=== PATIENT | male | born 1980 | race Caucasian/White ===

== ENCOUNTER 2020-10-29 14:18 | Inpatient (IN) | payer OTHER ==
[2020-10-29] MEDS ORDERED: DEXAMETHASONE 10 MG/ML VIAL IVP STA (14:35)
[2020-10-29] MEDS ORDERED: SODIUM CHLORIDE 0.9% 1,000 ML IV STA (14:47)
--- NOTE | 2020-10-29 14:50 | ED Physician Documentation ---
PD HPI URI - Stated complaint Stated Complaint: C+ SOA - Chief complaint Chief Complaint: Resp - History obtained from History obtained from: Patient - History of Present Illness Timing - onset: How many days ago (5) Timing duration: Days (5) Timing details: Abrupt onset, Still present Associated symptoms: Fever, Chills, Sweats, Nasal congestion, Dry cough, Dyspnea, NVD Contributing factors: Sick contact (works on the [employer]) Improves by: O2 Worsened by: Activity Similar symptoms before: Has not had sx before Recently seen: Other (has COVID test done 4 days ago +) - Additional information Additional information: Previously well 40-year-old male with a high BMI has developed fever muscle aches fatigue cough shortness of breath and he had a Covid test done 4 days ago which is positive. He has been at home quarantined and he has been vomiting. He has had increased shortness of breath and exertional dyspnea. Review of Systems Constitutional: reports: Fever, Chills, Fatigue, Sweats Eyes: denies: Decreased vision Ears: denies: Ear pain Nose: reports: Congestion. denies: Rhinorrhea / runny nose Throat: denies: Sore throat Cardiac: denies: Chest pain / pressure, Palpitations, Pedal edema, Calf pain Respiratory: reports: Dyspnea, Cough GI: reports: Nausea, Vomiting : denies: Dysuria, Frequency Skin: denies: Rash Musculoskeletal: denies: Neck pain, Back pain, Extremity pain Neurologic: denies: Focal weakness, Numbness, Difficulty speaking, Confused, Altered mental status PD PAST MEDICAL HISTORY - Allergies Allergies/Adverse Reactions: Allergies Allergy/AdvReac Type Severity Reaction Status Date / Time No Known Drug Allergies Allergy Verified 10/29/20 14:22 - Living Situation Living Situation: reports: With spouse/s.o. Living Arrangement: reports: At home - Family History Family history: reports: CAD (in 40's for father), Other (father of cryptogenic pneumonia) PD ED PE NORMAL - Vitals Vital signs reviewed: Yes - General General: Alert and oriented X 3, Well developed/nourished, Other ([place] appearing 40-year-old obese male in a recumbent position does not appear to be struggling for air) - HEENT HEENT: Atraumatic, PERRL, EOMI, Pharynx benign, Other (tongue is black) - Neck Neck: Supple, no meningeal sign, No bony TTP - Cardiac Cardiac: No murmur, Other (tachy ) - Respiratory Respiratory: No respiratory distress, Other (diminished breath sounds. ) - Abdomen Abdomen: Soft, Non tender, Other (obese) - Back Back: No CVA TTP, No spinal TTP - Derm Derm: Normal color, Warm and dry, No rash - Extremities Extremities: No deformity, No edema - Neuro Neuro: Alert and oriented X 3, pediatric nephrologist 2-12 intact, No motor deficit, No sensory deficit, Normal speech Eye Opening: Spontaneous Motor: Obeys Commands Verbal: Oriented GCS Score: 15 - Psych Psych: Normal mood, Normal affect Results - Vitals Vitals: Vital Signs - 24 hr 10/29/20 10/29/20 10/29/20 14:24 14:33 15:00 Temperature 38.4 C H Heart Rate 119 H 118 H 114 H Respiratory 16 21 14 Rate Blood Pressure 155/103 H 131/93 H 138/85 H O2 Saturation 85 L 90 L 92 Oxygen O2 Source Simple Mask - Labs Labs: Laboratory Tests 10/29/20 10/29/20 14:59 14:59 WBC 4.3 L RBC 4.77 Hgb 14.6 Hct 41.8 L MCV 87.6 MCH 30.6 MCHC 34.9 RDW 12.2 Plt Count 151 MPV 9.8 Neut # (Auto) 3.8 Lymph # (Auto) 0.3 L [place] # (Auto) 0.2 Eos # (Auto) 0.0 Baso # (Auto) 0.0 Absolute Nucleated RBC 0.00 Nucleated RBC % 0.0 Lactic Acid 1.0 - Rads (name of study) chest Radiology: Prelim report reviewed (Impression: Diffuse interstitial and alveolar opacities with obscuration of the pulmonary vascular likely represents pulmonary edema. Focal consolidation at the left lung base may represent more focal region of pulmonary edema. Underlying infection is not completely excluded. ), Final report received (Likely mild cardiomegaly questionable small left-sided pleural effusion.), EMP read indepedently (COVID pneumonia ) PD MEDICAL DECISION MAKING - ED course Complexity details: reviewed results, re-evaluated patient, considered differential, d/w patient ED course: 38-year-old male previously well with a history of obesity has developed COVID- 19 he is 5 days into his illness and is developed hypoxia. He has been vomiting for 4 days and feels dehydrated. He is administered intravenous saline 6 mg of dexamethasone and preparations are made for admission. Departure - Departure Disposition: 66 [facility] DC/[facility] Clinical Impression: Acute COVID-19, Dehydration
[2020-10-29] MEDS ORDERED: ACETAMINOPHEN 325 MG TABLET PO STA (14:52)
[2020-10-29] MEDS ORDERED: ONDANSETRON 4 MG/2 ML VIAL IVP STA (15:05)
[2020-10-29 15:08] LABS: HGB - HEMOGLOBIN 14.6 g/dL (14.0-18.0); LYMPHOCYTES # (AUTO) 0.3 10^3/uL (1.5-3.5); LYMPHOCYTES % (AUTO) 7.6 %; MEAN CORPUSCULAR HEMOGLOBIN 30.6 pg (27.0-31.0); MEAN CORPUSCULAR HGB CONC 34.9 g/dL (32.0-36.0); MEAN CORPUSCULAR VOLUME 87.6 fL (80.0-94.0); MEAN PLATELET VOLUME 9.8 fL (7.4-11.4); MONOCYTES # (AUTO) 0.2 10^3/uL (0.0-1.0); MONOCYTES % (AUTO) 4.6 %; NEUTROPHILS # (AUTO) 3.8 10^3/uL (1.5-6.6); NEUTROPHILS % (AUTO) 87.6 %; PLT - PLATELET COUNT 151 10^3/uL (130-450); RED BLOOD COUNT 4.77 10^6/uL (4.70-6.10); RED CELL DISTRIBUTION WIDTH 12.2 % (12.0-15.0); WHITE BLOOD COUNT 4.3 x10^3/uL (4.8-10.8)
--- NOTE | 2020-10-29 15:25 | XRAY Report ---
PROCEDURE: Chest 1 View X-Ray INDICATIONS: chest pain TECHNIQUE: One view of the chest was acquired. COMPARISON: None FINDINGS: Surgical changes and devices: None. Lungs and pleura: There is diffuse interstitial and alveolar opacities. Obscuration of the pulmonary vasculature. More focal opacity is noted at the left lung base. Mediastinum: Mediastinal contours appear normal. Heart size appears mildly enlarged. Questionable s mall left-sided pleural effusion. Bones and chest wall: No suspicious bony lesions. Overlying soft tissues appear unremarkable. IMPRESSION: Diffuse interstitial and alveolar opacities with obscuration of the pulmonary vasculature likely repr esents pulmonary edema. Focal consolidation at the left lung base may represent more focal region of pulmonary edema. Underlying infection is not completely excluded. Likely mild cardiomegaly. Questionable small left-sided pleural effusion. Reviewed by: Aguila Schaefer DO on 10/29/2020 2:24 PM [facility] Approved by: Aguila Schaefer DO on 10/29/2020 2:24 PM [facility] Station ID: [id number]
[2020-10-29 15:32] LABS: ALBUMIN 3.4 g/dL (3.2-5.5); BILIRUBIN,TOTAL 0.9 mg/dL (0.2-1.0); TOTAL PROTEIN 6.7 g/dL (6.7-8.2)
[2020-10-29 15:33] LABS: GLUCOSE, URINE (UA) NEGATIVE (NEGATIVE); KETONES,URINE (UA) 40 mg/dL (NEGATIVE); LEUKOCYTE ESTERASE, URINE NEGATIVE (NEGATIVE); NITRITE,URINE NEGATIVE (NEGATIVE); OCCULT BLOOD,URINE SMALL (NEGATIVE); PH,URINE 6.5 PH (5.0-7.5); PROTEIN,URINE 100 mg/dL (NEGATIVE); UROBILINOGEN,URINE 1 (NORMAL) E.U./dL (NORMAL)
[2020-10-29 15:41] LABS: BILIRUBIN,URINE NEGATIVE (NEGATIVE); CLARITY,URINE HAZY (CLEAR); ICTOTEST,URINE NEGATIVE
[2020-10-29] MEDS ORDERED: oxyCODONE 5 MG TABLET PO PRN (15:41)
[2020-10-29] MEDS ORDERED: ONDANSETRON ODT 4 MG TABLET TL PRN (15:41)
[2020-10-29] MEDS ORDERED: NON FORMULARY MED (Remdesivir 200 MG) IV SCH (15:45)
[2020-10-29 15:53] LABS: BACTERIA,URINE Rare /HPF (None Seen); RBC,URINE 0-5 /HPF (0-5); SQUAMOUS EPITHELIAL CELL,UR FEW Squamous (<= Few)
--- NOTE | 2020-10-29 16:12 | HISTORY & PHYSICAL EXAMINATION ---
Chief Complaint - Chief Complaint Chief Complaint: fever, chills, nausea, vomitting History of Present Illness - Admitted From Admitted From:: Home - History Obtained From Records Reviewed: [facility] History obtained from: patient and Dr. Zaragoza Exam Limitations: none - History of Present Illness HPI Comment/Other: Other than being morbidly obese, he considers himself a healthy diet. 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 As far as he knows no one else is sick in his house. 4 days ago he developed high fever, diffuse muscle aches, a dry cough, and profound fatigue. Shortness of breath started slowly and has progressed to panting today. He had a Covid test done 4 days ago and the results shown to be positive. He started vomiting today, cannot keep anything down. So between the shortness of breath and the vomiting he came to the emergency room. In the emergency room temperature was 38.4, heart rate 119, blood pressure 155/103, respirations 16 and is 85% on room air. He weight is 149.68 kg and he is 6 foot [address] Zaragoza describes him as "ferrer appearing 40-year-old obese male" who is in no respiratory distress. He has diminished breath sounds diffusely. Otherwise normal exam. Chest x-ray has diffuse interstitial and alveolar opacities with obscuration of the pulmonary vascular likely representing pulmonary edema. Possible focal consolidation left lung base. Urinalysis has proteinuria, ketonuria, small amount of occult blood. Sodium is 130, BUN 16, creatinine 1.0. Lactic acid 1.0. Calcium low 8.0. AST is 56. White cell count is low at 4.3 with lymphopenia on differential. Hemoglobin 14.6. Blood cultures have been done. On the basis of abnormal chest x-ray, positive Covid testing, he is now admitted for Covid pneumonia and hypoxia History - Past Medical History Cardiovascular: reports: Hypertension Respiratory: reports: None Neuro: reports: None Endocrine/Autoimmune: reports: None GI: reports: None : reports: None HEENT: reports: None Psych: reports: None Musculoskeletal: reports: None Derm: reports: None MRSA Hx?: No - Family & Social History Family History Comment/Other: Dad in his 40s of cryptic genic pneumonia. Mom is 64 and healthy without any history of hypertension, diabetes, cancer, heart attack. 1 sister is completely healthy. 3 children are completely healthy without any medical problems Living arrangement: At home Living Situation: With spouse/s.o. [place]. 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 He started smoking at the age of 14 and probably smokes 1 cigarette a month. Mainly smokes when he is having a drink with the guys. Alcohol is 1-2 drinks a week. No history of cannabis, cocaine, heroin, LSD, or methamphetamines. He is , lives with his 3 kids and his in their own home. - Substance History Use: Uses substance without health or social issues: NONE Abuse: Recurrent use of substance despite neg consequences: NONE Dependence: Experiences withdrawal or developed tolerances: NONE - POLST Patient has POLST: No POLST Status: Full Code Meds/Allgy - Allergies Allergies/Adverse Reactions: Allergies Allergy/AdvReac Type Severity Reaction Status Date / Time No Known Drug Allergies Allergy Verified 10/29/20 14:22 Review of Systems - All Other Systems All Other Systems: reports: Other (13 point review of systems done. Any pertinent positives are in history of present illness. All others are negative.) Prior Level of Functionality: Completely independent with activities of daily living. Drives a car, able to do housework, works full-time. Does not use any durable medical equipment. Exam - Vital Signs Reviewed Vital Signs: Yes Vital Signs: Vital Signs x48h Temp Pulse Resp BP Pulse Ox 10/29/20 15:30 112 H 22 153/98 H 94 10/29/20 15:00 114 H 14 138/85 H 92 10/29/20 14:33 118 H 21 131/93 H 90 L 10/29/20 14:24 38.4 C H 119 H 16 155/103 H 85 L - Physical Exam General Appearance: positive: Alert, Mild distress, Other (Morbidly obese young white male who looks his stated age, appears completely exhausted with the effort of speaking to me, diffusely diaphoretic) Eyes Bilateral: positive: PERRL, EOMI ENT: positive: No signs of dehydration Neck: positive: No JVD. negative: Stiff neck Respiratory: positive: Rales, Other (Respiratory rate is in the low 20s, slight panting with speaking to me.). negative: Wheezes, Rhonchi Cardiovascular: positive: Regular rate & rhythm, Tachycardia. negative: Systolic murmur, Gallop/S4, Friction rub Peripheral Pulses: positive: 1+ Abdomen: positive: Non-tender, Nml bowel sounds, No distention, Other (Hugely obese, unable to assess for organomegaly) Skin: positive: Warm, Dry, Diaphoresis, Pallor Extremities: positive: Non-tender, Full ROM, No pedal edema Neurologic/Psychiatric: positive: Oriented x3, CN's nml (2-12), Motor nml, Sensation nml Conclusion/Plan - Problem List (1) Pneumonia due to COVID-19 virus Conclusion/Plan: Covid +4 days ago. Repeat PCR not done in the emergency room. Chest x-ray confirms diffuse infiltrate with some consolidation left lung. Plan: Remdesivir 200 mg today and 100 mg a day for 4 days after that Already given Decadron in the ER and that will be continued 6 mg daily D-dimer in the morning Lovenox 40 mg subcu daily Because of possible consolidation, will add Rocephin and azithromycin (2) Acute respiratory failure with hypoxia Conclusion/Plan: Nasal cannula oxygen at this time. We will progress to facemasks and BiPAP if needed. He does wish to be a full code. (3) Dehydration Conclusion/Plan: With his fever, diffuse diaphoresis, decreased p.o. intake with nausea and vomiting, I would suspect that dehydration is problematic although not recognized by his BUN and creatinine. Plan: Lactated Ringer's 100 cc an hour - Lab Results Lab results reviewed: Yes Fish Bones: 10/29/20 14:59 10/29/20 14:59 - Diagnostic Imaging Results Diagnostic Imaging Results: positive: Final report reviewed Diagnostic Imaging Results Comments: As noted in history of present illness Core Measures - Anticipated LOS I expect patient to be DC'd or transferred within 96 hours.: Yes - DVT/VTE - Prophylaxis VTE/DVT Device ordered at admit?: Yes
[2020-10-29] MEDS: SODIUM CHLORIDE FLUSH 0.9% 10 ML SYRINGE IVP SCH (16:51)
[2020-10-29] MEDS: LACTATED RINGERS 1,000 ML IV SCH (16:52)
[2020-10-29] MEDS ORDERED: REMDESIVIR 100MG VIAL 200 MG in SODIUM CHLORIDE 0.9% 210 ML IV ONE (17:00)
[2020-10-29] MEDS: cefTRIAXone 1 GM in SODIUM CHLORIDE 0.9% MINIBAG 100 ML IV SCH (18:00)
[2020-10-29] MEDS: AZITHROMYCIN INJ 500 MG in SODIUM CHLORIDE 0.9% 250 ML IV SCH (18:38)
[2020-10-29] MEDS: ACETAMINOPHEN 325 MG TABLET PO PRN (21:44)
[2020-10-29] MEDS: ONDANSETRON 4 MG/2 ML VIAL IVP PRN (21:44)
[2020-10-30] MEDS: SODIUM CHLORIDE FLUSH 0.9% 10 ML SYRINGE IVP SCH ×3 (00:31→17:02)
[2020-10-30] MEDS: LACTATED RINGERS 1,000 ML IV SCH ×2 (05:32→15:48)
[2020-10-30 06:15] LABS: HGB - HEMOGLOBIN 13.6 g/dL (14.0-18.0); LYMPHOCYTES # (AUTO) 0.4 10^3/uL (1.5-3.5); LYMPHOCYTES % (AUTO) 11.8 %; MEAN CORPUSCULAR HEMOGLOBIN 30.4 pg (27.0-31.0); MEAN CORPUSCULAR HGB CONC 34.3 g/dL (32.0-36.0); MEAN CORPUSCULAR VOLUME 88.6 fL (80.0-94.0); MEAN PLATELET VOLUME 9.3 fL (7.4-11.4); MONOCYTES # (AUTO) 0.2 10^3/uL (0.0-1.0); MONOCYTES % (AUTO) 7.4 %; NEUTROPHILS # (AUTO) 2.4 10^3/uL (1.5-6.6); NEUTROPHILS % (AUTO) 80.1 %; PLT - PLATELET COUNT 152 10^3/uL (130-450); RED BLOOD COUNT 4.48 10^6/uL (4.70-6.10); RED CELL DISTRIBUTION WIDTH 12.4 % (12.0-15.0)
[2020-10-30 06:22] LABS: CALCIUM 7.8 mg/dL (8.5-10.3); CREATININE 0.9 mg/dL (0.6-1.2)
[2020-10-30] MEDS: ENOXAPARIN 40 MG/0.4 ML SYRINGE SUBQ SCH (08:19)
[2020-10-30] MEDS: ONDANSETRON 4 MG/2 ML VIAL IVP PRN ×2 (08:19→21:08)
[2020-10-30] MEDS: DEXAMETHASONE 4 MG/ML VIAL IVP SCH (08:19)
--- NOTE | 2020-10-30 11:37 | PROVIDER PROGRESS NOTE ---
Subjective - Prog Note Date Prog Note Date: 10/30/20 Prog Note Time: 11:38 - Subjective Subjective: When he was admitted yesterday, there was no medication list on his intake. He did say he had high blood pressure was but vague on the pills. Today pharmacy says that he may be taking amlodipine, Lexapro, lisinopril. Naproxen extended release. Patient still has cough, fatigue, shortness of breath. Less nausea. No vomiting. Current Medications - Current Medications Current Medications: Active Medications Acetaminophen (Acetaminophen 325 Mg Tablet) 650 mg PO Q4HR PRN PRN Reason: Pain 1 to 4 Last Admin: 10/29/20 21:44 Dose: 650 mg Documented by: Dexamethasone (Dexamethasone 4 Mg/Ml Vial) 6 mg IVP DAILY ON LICENSE OF [facility] Last Admin: 10/30/20 08:19 Dose: 6 mg Documented by: Enoxaparin Sodium (Enoxaparin 40 Mg/0.4 Ml Syringe) 40 mg SUBQ DAILY ON LICENSE OF [facility] Last Admin: 10/30/20 08:19 Dose: 40 mg Documented by: Lactated Ringer's (Lr) 1,000 mls @ 100 mls/hr IV .Q10H ON LICENSE OF [facility] Last Admin: 10/30/20 05:32 Dose: 100 mls/hr Documented by: Remdesivir 100 mg/ Sodium (Chloride) 100 mls @ 200 mls/hr IV Q24H ON LICENSE OF [facility] Stop: 11/02/20 17:29 Ceftriaxone Sodium 1 gm/ (Sodium Chloride) 100 mls @ 200 mls/hr IV Q24H ON LICENSE OF [facility] Last Infusion: 10/29/20 18:37 Dose: Infused Documented by: Azithromycin 500 mg/ Sodium (Chloride) 250 mls @ 250 mls/hr IV Q24H ON LICENSE OF [facility] Stop: 11/02/20 19:59 Last Infusion: 10/29/20 19:39 Dose: Infused Documented by: Ondansetron HCl (Ondansetron Odt 4 Mg Tablet) 4 mg TL Q6HR PRN PRN Reason: Nausea / Vomiting Ondansetron HCl (Ondansetron 4 Mg/2 Ml Vial) 4 mg IVP Q6HR PRN PRN Reason: Nausea / Vomiting Last Admin: 10/30/20 08:19 Dose: 4 mg Documented by: Oxycodone HCl (Oxycodone 5 Mg Tablet) 5 mg PO Q4HR PRN PRN Reason: Pain 5 to 7 Last Admin: 10/30/20 00:39 Dose: 5 mg Documented by: Sodium Chloride (Sodium Chloride Flush 0.9% 10 Ml Syringe) 10 ml IVP PRN PRN PRN Reason: NEEDED PER PROVIDER ORDERS Sodium Chloride (Sodium Chloride Flush 0.9% 10 Ml Syringe) 10 ml IVP 0100,0900,1700 NELL Last Admin: 10/30/20 10:14 Dose: Not Given Documented by: Escitalopram Oxalate [Lexapro] 20 mg PO DAILY 10/30/20 Naproxen [EC-Naprosyn] 500 mg PO BID PRN 10/30/20 amLODIPine [Norvasc] 5 mg PO DAILY 10/30/20 lisinopriL [Lisinopril] 10 mg PO DAILY 10/30/20 Objective - Vital Signs/Intake & Output Reviewed Vital Signs: Yes Vital Signs: Vital Signs x48h Temp Pulse Resp BP Pulse Ox 10/30/20 08:11 37.0 C 97 18 142/95 H 92 10/30/20 05:31 94 Intake & Output: Intake & Output 10/27/20 10/28/20 10/29/20 10/30/20 23:59 23:59 23:59 23:59 Intake Total 2350 1228.333 Output Total 800 1175 Balance 1550 53.333 - Objective General Appearance: positive: Alert, Other (Yesterday he was diaphoretic, slightly panting. Today much more comfortable with no diaphoresis and respiratory rate down to 18.Morbidly obese at 151 kg, 6 foot 1 inches tall) Eyes Bilateral: positive: PERRL Neck: positive: No JVD Respiratory: positive: No respiratory distress (At rest. But if he gets up to walk to the bathroom he does get tachypneic and quickly recovers. No use of acc essory muscles.), Rales (Overall diminished breath sounds, quiet lungs but he does have crackles midlung to lower lungs). negative: Wheezes, Rhonchi Cardiovascular: positive: Regular rate & rhythm. negative: Gallop/S4, Friction rub Abdomen: positive: Non-tender, No organomegaly, Nml bowel sounds, No distention Skin: positive: Warm, Dry, Pallor, Other (Psoriatic rash). negative: Diaphoresis Extremities: positive: Full ROM, No pedal edema Neurologic/Psychiatric: positive: Oriented x3, CN's nml (2-12), Motor nml - Lab Results Fish Bones: 10/30/20 05:55 10/30/20 05:55 Other Labs: Lab Results x24hrs 10/30/20 10/30/20 10/30/20 Range/Units 05:55 05:55 05:55 WBC 3.0 L (4.8-10.8) x10^3/uL RBC 4.48 L (4.70-6.10) 10^6/uL Hgb 13.6 L (14.0-18.0) g/dL Hct 39.7 L (42.0-52.0) % MCV 88.6 (80.0-94.0) fL MCH 30.4 (27.0-31.0) pg MCHC 34.3 (32.0-36.0) g/dL RDW 12.4 (12.0-15.0) % Plt Count 152 (130-450) 10^3/uL MPV 9.3 (7.4-11.4) fL Neut # (Auto) 2.4 (1.5-6.6) 10^3/uL Lymph # (Auto) 0.4 L (1.5-3.5) 10^3/uL [place] # (Auto) 0.2 (0.0-1.0) 10^3/uL Eos # (Auto) 0.0 (0.0-0.7) 10^3/uL Baso # (Auto) 0.0 (0.0-0.1) 10^3/uL Absolute Nucleated RBC 0.00 x10^3/uL Nucleated RBC % 0.0 /100WBC D-Dimer 350.9 H (200.0-255.0) ng/mL Sodium 134 L (135-145) mmol/L Potassium 3.9 (3.5-5.0) mmol/L Chloride 100 L (101-111) mmol/L Carbon Dioxide 24 (21-32) mmol/L Anion Gap 10.0 (6-13) BUN 16 (6-20) mg/dL Creatinine 0.9 (0.6-1.2) mg/dL Estimated GFR (MDRD) 93 (>89) Glucose 148 H (70-100) mg/dL Lactic Acid (0.5-2.2) mmol/L Calcium 7.8 L (8.5-10.3) mg/dL Total Bilirubin (0.2-1.0) mg/dL AST (10-42) IU/L ALT (10-60) IU/L Alkaline Phosphatase (42-121) IU/L B-Natriuretic Peptide (5-100) pg/mL Total Protein (6.7-8.2) g/dL Albumin (3.2-5.5) g/dL Globulin (2.1-4.2) g/dL Albumin/Globulin Ratio (1.0-2.2) Lipase (22-51) U/L Urine Color Urine Clarity (CLEAR) Urine pH (5.0-7.5) PH Ur Specific [place] (1.002-1.030) Urine Protein (NEGATIVE) mg/dL Urine Glucose (UA) (NEGATIVE) mg/dL Urine Ketones (NEGATIVE) mg/dL Urine Occult Blood (NEGATIVE) Urine Nitrite (NEGATIVE) Urine Bilirubin (NEGATIVE) Urine Urobilinogen (NORMAL) E.U./dL Ur Leukocyte Esterase (NEGATIVE) Urine RBC (0-5) /HPF Urine WBC (0-3) /HPF Ur Squamous Epith Cells (<= Few) Urine Bacteria (None Seen) /HPF Ur Microscopic Review Urine Culture Comments 10/29/20 10/29/20 10/29/20 Range/Units 15:26 14:59 14:59 WBC (4.8-10.8) x10^3/uL RBC (4.70-6.10) 10^6/uL Hgb (14.0-18.0) g/dL Hct (42.0-52.0) % MCV (80.0-94.0) fL MCH (27.0-31.0) pg MCHC (32.0-36.0) g/dL RDW (12.0-15.0) % Plt Count (130-450) 10^3/uL MPV (7.4-11.4) fL Neut # (Auto) (1.5-6.6) 10^3/uL Lymph # (Auto) (1.5-3.5) 10^3/uL [place] # (Auto) (0.0-1.0) 10^3/uL Eos # (Auto) (0.0-0.7) 10^3/uL Baso # (Auto) (0.0-0.1) 10^3/uL Absolute Nucleated RBC x10^3/uL Nucleated RBC % /100WBC D-Dimer (200.0-255.0) ng/mL Sodium 130 L (135-145) mmol/L Potassium 3.8 (3.5-5.0) mmol/L Chloride 93 L (101-111) mmol/L Carbon Dioxide 23 (21-32) mmol/L Anion Gap 14.0 H (6-13) BUN 16 (6-20) mg/dL Creatinine 1.0 (0.6-1.2) mg/dL Estimated GFR (MDRD) 82 L (>89) Glucose 117 H (70-100) mg/dL Lactic Acid 1.0 (0.5-2.2) mmol/L Calcium 8.0 L (8.5-10.3) mg/dL Total Bilirubin 0.9 (0.2-1.0) mg/dL AST 56 H (10-42) IU/L ALT 37 (10-60) IU/L Alkaline Phosphatase 57 (42-121) IU/L B-Natriuretic Peptide (5-100) pg/mL Total Protein 6.7 (6.7-8.2) g/dL Albumin 3.4 (3.2-5.5) g/dL Globulin 3.3 (2.1-4.2) g/dL Albumin/Globulin Ratio 1.0 (1.0-2.2) Lipase 31 (22-51) U/L Urine Color DARK YELLOW Urine Clarity HAZY (CLEAR) Urine pH 6.5 (5.0-7.5) PH Ur Specific [place] 1.025 (1.002-1.030) Urine Protein 100 H (NEGATIVE) mg/dL Urine Glucose (UA) NEGATIVE (NEGATIVE) mg/dL Urine Ketones 40 H (NEGATIVE) mg/dL Urine Occult Blood SMALL H (NEGATIVE) Urine Nitrite NEGATIVE (NEGATIVE) Urine Bilirubin NEGATIVE (NEGATIVE) Urine Urobilinogen 1 (NORMAL) (NORMAL) E.U./dL Ur Leukocyte Esterase NEGATIVE (NEGATIVE) Urine RBC 0-5 (0-5) /HPF Urine WBC 0-3 (0-3) /HPF Ur Squamous Epith Cells FEW Squamous (<= Few) Urine Bacteria Rare (None Seen) /HPF Ur Microscopic Review INDICATED Urine Culture Comments NOT INDICATED 10/29/20 10/29/20 Range/Units 14:59 14:38 WBC 4.3 L (4.8-10.8) x10^3/uL RBC 4.77 (4.70-6.10) 10^6/uL Hgb 14.6 (14.0-18.0) g/dL Hct 41.8 L (42.0-52.0) % MCV 87.6 (80.0-94.0) fL MCH 30.6 (27.0-31.0) pg MCHC 34.9 (32.0-36.0) g/dL RDW 12.2 (12.0-15.0) % Plt Count 151 (130-450) 10^3/uL MPV 9.8 (7.4-11.4) fL Neut # (Auto) 3.8 (1.5-6.6) 10^3/uL Lymph # (Auto) 0.3 L (1.5-3.5) 10^3/uL [place] # (Auto) 0.2 (0.0-1.0) 10^3/uL Eos # (Auto) 0.0 (0.0-0.7) 10^3/uL Baso # (Auto) 0.0 (0.0-0.1) 10^3/uL Absolute Nucleated RBC 0.00 x10^3/uL Nucleated RBC % 0.0 /100WBC D-Dimer (200.0-255.0) ng/mL Sodium (135-145) mmol/L Potassium (3.5-5.0) mmol/L Chloride (101-111) mmol/L Carbon Dioxide (21-32) mmol/L Anion Gap (6-13) BUN (6-20) mg/dL Creatinine (0.6-1.2) mg/dL Estimated GFR (MDRD) (>89) Glucose (70-100) mg/dL Lactic Acid (0.5-2.2) mmol/L Calcium (8.5-10.3) mg/dL Total Bilirubin (0.2-1.0) mg/dL AST (10-42) IU/L ALT (10-60) IU/L Alkaline Phosphatase (42-121) IU/L B-Natriuretic Peptide 6 (5-100) pg/mL Total Protein (6.7-8.2) g/dL Albumin (3.2-5.5) g/dL Globulin (2.1-4.2) g/dL Albumin/Globulin Ratio (1.0-2.2) Lipase (22-51) U/L Urine Color Urine Clarity (CLEAR) Urine pH (5.0-7.5) PH Ur Specific [place] (1.002-1.030) Urine Protein (NEGATIVE) mg/dL Urine Glucose (UA) (NEGATIVE) mg/dL Urine Ketones (NEGATIVE) mg/dL Urine Occult Blood (NEGATIVE) Urine Nitrite (NEGATIVE) Urine Bilirubin (NEGATIVE) Urine Urobilinogen (NORMAL) E.U./dL Ur Leukocyte Esterase (NEGATIVE) Urine RBC (0-5) /HPF Urine WBC (0-3) /HPF Ur Squamous Epith Cells (<= Few) Urine Bacteria (None Seen) /HPF Ur Microscopic Review Urine Culture Comments Assessment/Plan - Problem List (1) Pneumonia due to COVID-19 virus Impression: Presented as fever, chills, myalgias. Severe fatigue. Then progressed to nausea and vomiting the day before admission. Covid +5 days ago. Repeat PCR not done in the emergency room. Chest x-ray confirms diffuse infiltrate with some consolidation left lung. He is neutropenic and lymphopenic. That remains unchanged. Plan: Remdesivir 200 mg Day #1 and 100 mg a day for 4 days after that. Today is Day #1/4 Already given Decadron in the ER and that will be continued 6 mg daily Day #2/5. It is causing mild hyperglycemia at 148. Consider starting sliding scale if remains elevated. D-dimer is Elevated as expected. He is already on Lovenox 40 mg subcu daily Because of possible consolidation, will add Rocephin and azithromycin, Day #2/5- 7 days (2) Acute respiratory failure with hypoxia Conclusion/Plan: He was initially on nasal cannula, quickly went up to 5 L with Oxymizer. He has remained at 5 L between day 1 and today day 2. O2 sat 92%. We will progress to facemasks and BiPAP if needed. He does wish to be a full code. (3) Dehydration Conclusion/Plan: With his fever, diffuse diaphoresis, decreased p.o. intake with nausea and vomiting, I would suspect that dehydration is problematic although not recognized by his BUN and creatinine. Plan: Lactated Ringer's 100 cc an hour (4) Essential Hypertension Pharmacy will verify medications. I do not think I will start both of his Norvasc or lisinopril. Blood pressure 130s to 150s systolic. Will resume 1 of those medicines once list is verified.
--- NOTE | 2020-10-30 12:30 | PHARMACY PROGRESS NOTE ---
- Best Possible Medication History Admit Date and Time: 10/29/20 1541 Processed by: Pharmacy Medication History completed: Yes Patient Interview: Completed Secondary Source(s): Pharmacy records, Insurance records As the person ultimately responsible for medication therapy, providers are able to order a medication from an existing home medication list in [facility] via the "Reconcile Routine" prior to Confirmation of that medication by manager support. Such practice is discouraged except when the physician, in their clinical judgment, deems that a medical need exists for a medication without regard to previous use.
[2020-10-30] MEDS ORDERED: traZODone 50 MG TABLET PO PRN (13:52)
[2020-10-30] MEDS ORDERED: LOPERAMIDE 2 MG CAPSULE PO PRN (16:08)
[2020-10-30] MEDS ORDERED: guaiFENesin/CODEINE 5 ML UDC PO PRN (16:08)
[2020-10-30] MEDS: SACCHAROMYCES BOULARDII 250 MG CAPSULE PO SCH (17:00)
[2020-10-30] MEDS: SODIUM CHLORIDE 0.9% IV SCH (17:02)
[2020-10-30] MEDS: REMDESIVIR IV SCH (17:02)
[2020-10-30] MEDS: AZITHROMYCIN INJ 500 MG in SODIUM CHLORIDE 0.9% 250 ML IV SCH (18:11)
[2020-10-30] MEDS: cefTRIAXone 1 GM in SODIUM CHLORIDE 0.9% MINIBAG 100 ML IV SCH (19:31)
[2020-10-30] MEDS: ALBUTEROL 1 PUFF INH SCH (21:06)
[2020-10-30] MEDS: SODIUM CHLORIDE FLUSH 0.9% 10 ML SYRINGE IVP PRN ×2 (21:10→21:47)
[2020-10-30] MEDS: MORPHINE 2 MG/ML CARPUJECT IVP PRN (21:47)
[2020-10-30] MEDS: ACETAMINOPHEN 325 MG TABLET PO PRN (22:03)
[2020-10-31] MEDS: MORPHINE 2 MG/ML CARPUJECT IVP PRN ×5 (01:20→15:56)
[2020-10-31] MEDS: SODIUM CHLORIDE FLUSH 0.9% 10 ML SYRINGE IVP SCH ×3 (01:27→16:03)
[2020-10-31] MEDS: SODIUM CHLORIDE FLUSH 0.9% 10 ML SYRINGE IVP PRN (01:27)
[2020-10-31 05:37] LABS: HGB - HEMOGLOBIN 13.5 g/dL (14.0-18.0); LYMPHOCYTES # (AUTO) 0.5 10^3/uL (1.5-3.5); LYMPHOCYTES % (AUTO) 9.9 %; MEAN CORPUSCULAR HEMOGLOBIN 30.6 pg (27.0-31.0); MEAN CORPUSCULAR HGB CONC 33.8 g/dL (32.0-36.0); MEAN CORPUSCULAR VOLUME 90.7 fL (80.0-94.0); MEAN PLATELET VOLUME 9.4 fL (7.4-11.4); MONOCYTES # (AUTO) 0.4 10^3/uL (0.0-1.0); MONOCYTES % (AUTO) 7.4 %; NEUTROPHILS # (AUTO) 4.2 10^3/uL (1.5-6.6); NEUTROPHILS % (AUTO) 82.1 %; PLT - PLATELET COUNT 198 10^3/uL (130-450); RED BLOOD COUNT 4.41 10^6/uL (4.70-6.10); RED CELL DISTRIBUTION WIDTH 12.5 % (12.0-15.0); WHITE BLOOD COUNT 5.1 x10^3/uL (4.8-10.8)
[2020-10-31 05:47] LABS: CALCIUM 7.7 mg/dL (8.5-10.3); CREATININE 0.9 mg/dL (0.6-1.2)
[2020-10-31] MEDS: ONDANSETRON 4 MG/2 ML VIAL IVP PRN (06:09)
[2020-10-31] MEDS: ALBUTEROL 1 PUFF INH SCH ×2 (07:32→15:19)
[2020-10-31] MEDS: SACCHAROMYCES BOULARDII 250 MG CAPSULE PO SCH ×2 (08:36→16:15)
[2020-10-31] MEDS: DEXAMETHASONE 4 MG/ML VIAL IVP SCH (08:36)
[2020-10-31] MEDS: ENOXAPARIN 40 MG/0.4 ML SYRINGE SUBQ SCH (08:36)
[2020-10-31] MEDS ORDERED: ESCITALOPRAM 10 MG TABLET PO SCH (09:00)
[2020-10-31] MEDS ORDERED: lisinopriL 5 MG TABLET PO SCH (09:00)
[2020-10-31] MEDS ORDERED: SODIUM CHLORIDE FLUSH 0.9% 10 ML SYRINGE IVP PRN (10:28)
--- NOTE | 2020-10-31 13:48 | DISCHARGE SUMMARY ---
Discharge Summary Admit Date: 10/29/20 Discharge Date: 10/31/20 Discharging Provider: Shantelle Crane MD Primary Care Provider: Kyile Vick MD Code Status: Attempt Resuscitation Condition at Discharge: Serious Discharge Disposition: Transfer Acute Care Hosp Discharge [facility] Name: [facility] - DIAGNOSES Discharge Diagnoses with Status of Each Condition: 1. Covid pneumonia 2. Acute respiratory failure with hypoxia 3. Dehydration 4. Essential hypertension - HPI History of Present Illness: Other than being morbidly obese, he considers himself a healthy sherry. 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 As far as he knows no one else is sick in his house. 4 days ago he developed high fever, diffuse muscle aches, a dry cough, and profound fatigue. Shortness of breath started slowly and has progressed to panting today. He had a Covid test done 4 days ago and the results shown to be positive. He started vomiting today, cannot keep anything down. So between the shortness of breath and the vomiting he came to the emergency room. In the emergency room temperature was 38.4, heart rate 119, blood pressure 155/103, respirations 16 and is 85% on room air. He weight is 149.68 kg and he is [address] Zaragoza describes him as "ferrer appearing 40-year-old obese male" who is in no respiratory distress. He has diminished breath sounds diffusely. Otherwise normal exam. Chest x-ray has diffuse interstitial and alveolar opacities with obscuration of the pulmonary vascular likely representing pulmonary edema. Possible focal consolidation left lung base. Urinalysis has proteinuria, ketonuria, small amount of occult blood. Sodium is 130, BUN 16, creatinine 1.0. Lactic acid 1.0. Calcium low 8.0. AST is 56. White cell count is low at 4.3 with lymphopenia on differential. Hemogl obin 14.6. Blood cultures have been done. On the basis of abnormal chest x-ray, positive Covid testing, he is now admitted for Covid pneumonia and hypoxia - Past Medical History Cardiovascular: reports: Hypertension Respiratory: reports: None Neuro: reports: None Endocrine/Autoimmune: reports: None GI: reports: None : reports: None HEENT: reports: None Psych: reports: None Musculoskeletal: reports: None Derm: reports: None MRSA Hx?: No - CONSULTS | PROCEDURES Procedures: 1. Chest x-ray with diffuse interstitial and alveolar opacities with obscuration of the pulmonary vasculature likely due to to pulmonary edema versus underlying infection. Focal consolidation at the left lung base may represent more focal region of pulmonary edema. 2. Blood cultures x2 sets negative after 1 day - HOSPITAL COURSE Hospital Course: The patient was placed on MedSurg. Started on remdesivir, Decadron, and for the possibility of secondary pneumonia, Rocephin and azithromycin. He required increasing use his nasal cannula oxygen and was finally placed on high flow nasal cannula with humidity. In an effort to be proactive, we transferred the patient to ICU in case he would have sudden desaturation and required ICU care. That transfer alone caused him to desaturate into the 80s. BiPAP was used for only a few minutes but he is claustrophobic and did not want it on his face and desaturated from panic alone. He rebounded to 92 to 94% once he was placed back on high flow nasal cannula with humidity. During this transfer, the called and asked him to be transferred to [facility]. She wanted a higher level of care. I spoke to the physician advisor for Jessica. While the patient does not meet medical necessity for transfer at this time to a higher level of care, the problem will be down the road. If this patient does require intubation, and is intubated longer than 48 hours, we are a critical [facility] and do not have the capability of continuing to take care of the patient that is so critically ill. As such the physician advisor felt it prudent to go ahead and transfer. I spoke to the electric truck driver, Dr. Hampton, who accepted the patient in transfer. At transfer temperature is 35.9, pulse is 87, blood pressure 157/91, respiratory rate 26, 85% FiO2, 60 L/min flow, 96% saturated. He is 6 feet 1 inches tall and weighs 150.5 kg. He is a morbidly obese very fatigued appearing white male. When he presented on admission he was pale, exceedingly diaphoretic. The diaphoresis has resolved. He does have anxiety and claustrophobia with the BiPAP mask. Diffuse crackles on lung exam. PMI normally placed with a regular rate and rhythm. A huge protuberant morbidly obese belly. Extremities without edema. During his stay his medications of Desyrel, Lexapro, and lisinopril were abad nued. I held off on using his Norvasc. He is transferred in stable condition but it is tenuous. Greater than 35 minutes was spent coordinating discharge. - ALLERGIES Allergies/Adverse Reactions: Allergies Allergy/AdvReac Type Severity Reaction Status Date / Time No Known Drug Allergies Allergy Verified 10/29/20 14:22 - MEDICATIONS Home Medications: Ambulatory Orders Medication Instructions Recorded Confirmed Escitalopram Oxalate [Lexapro] 20 mg PO DAILY 10/30/20 10/30/20 Naproxen [EC-Naprosyn] 500 mg PO BID PRN 10/30/20 10/30/20 amLODIPine [Norvasc] 5 mg PO DAILY 10/30/20 10/30/20 lisinopriL [Lisinopril] 10 mg PO DAILY 10/30/20 10/30/20 traZODone [Desyrel] 50 mg PO QPM PRN 10/30/20 10/30/20 - LABS Result Diagrams: 10/31/20 05:15 10/31/20 05:15
--- NOTE | 2020-10-31 13:55 | Discharge Plan ---
Discharge Plan Problem Reviewed?: Yes Disposition: 02 Transfer Acute Care Hosp Condition: Serious Instruction Topics: Ceftriaxone injection, Azithromycin for infusion, COVID-19 [facility], COVID-19 [facility] Department Statement, Flu and Cold: Nutrition, Prevention and Treatment Tips No Smoking: If you smoke, Please STOP! Call for help. Follow-up with: MARI SALAMANCA MD [Primary Care Provider] -
[2020-10-31] MEDS: SODIUM CHLORIDE 0.9% IV SCH (16:00)
[2020-10-31] MEDS: REMDESIVIR IV SCH (16:00)
[2020-10-31] MEDS ORDERED: SODIUM CHLORIDE FLUSH 0.9% 10 ML SYRINGE IVP SCH (17:00)
[2020-10-31 19:02] VITALS: BP 152/96
== END 2020-10-31 17:30 | disposition short-term general hospital (02) | DRG 177 ==
LOC: ED 14:18 → MS2 15:41 → ICU 10-31 10:40
PROVIDERS: ADMIT Specialist; ATTEND Specialist
DX: U07.1 COVID-19 (principal); J12.82 Pneumonia due to coronavirus disease 2019; J96.01 Acute respiratory failure with hypoxia; Z68.41 Body mass index [BMI] 40.0-44.9, adult; E86.0 Dehydration; I10 Essential (primary) hypertension; E66.01 Morbid (severe) obesity due to excess calories; R11.2 Nausea with vomiting, unspecified; F41.9 Anxiety disorder, unspecified; F17.210 Nicotine dependence, cigarettes, uncomplicated
CPT/HCPCS: 36415; 71045; 80048; 80053; 81001; 83605; 83690; 83880; 85025; 85379; 87040; 87150; 94640; 94664; 96361; 96374; 96375; 99284; 99285; A9270; C9399; J1650; J7120; 81003; 84484; 87086